=== PATIENT | female | born 1965 | race Caucasian/White ===

== ENCOUNTER → 2016-07-13 | Outpatient (CLI) | payer OTHER ==
[~2016-07-13] MED LIST: ACET-749 PO; AGM875 PO; CLMTP TD; CPRUNK PO; MTRUNK PO
[2016-07-13 10:09] LABS: FERRITIN 64.7 ng/ml (8.0-388.0)
[2016-07-23 20:19] LABS: ESTRADIOL 251 pg/mL
== END | disposition home or self-care (01) ==
LOC: C.LAB 08:39
PROVIDERS: ATTEND Internal Medicine Endocrinology, Diabetes & Metabolism
DX: E03.9 Hypothyroidism, unspecified (principal); E61.1 Iron deficiency; N95.1 Menopausal and female climacteric states; E55.9 Vitamin D deficiency, unspecified

== ENCOUNTER → 2017-06-21 | Outpatient (CLI) | payer OTHER ==
[2017-06-21 12:46] LABS: T3 FREE 3.88 pg/ml (2.30-4.20)
[2017-06-28 14:01] LABS: TESTOSTERONE,TOTAL 204 ng/dL (2-45)
== END | disposition home or self-care (01) ==
LOC: C.LAB 09:10
PROVIDERS: ATTEND Internal Medicine Endocrinology, Diabetes & Metabolism
DX: E03.9 Hypothyroidism, unspecified (principal); E61.1 Iron deficiency; N95.1 Menopausal and female climacteric states; E55.9 Vitamin D deficiency, unspecified